=== PATIENT | female | born 1995 | race Caucasian/White ===

== ENCOUNTER 2019-06-26 22:40 | Inpatient (IN) | payer OTHER, MEDICAID, SELFPAY ==
--- NOTE | 2019-06-26 23:45 | P.HPOB_ITS ---
OB HPI Date/Time Date of admission: 06/26/19 Date Patient Seen: 06/26/19 Time Patient Seen: 23:45 History of Present Condition Chief complaint: EVAL OF LABOR : 2 Para: 1 Estimated Date of Delivery: 07/02/19 Estimated Gestational Age (weeks): 39w 1d Narrative: Nina Botoh is a 24 year old at approximately 39 weeks and 1 day gestation based on 16 week ultrasound in active labor. Painful contractions started shortly before arrival. Dating based on second-trimester ultrasound done 01/20/19 with estimated gestational age of 16 weeks and 5 days giving an CULLEN of 07/02/19. She had 1 visit at [facility] 01/10/2019. Patient admits to daily use of IV heroin, approximately 0.5 g per day. She also smokes a pack a day of cigarettes. Denies other drug use though her UDS done in December was also positive for amphetamines. Patient states she has a history of hepatitis C for which she has never received treatment. Her first child lives with her adoptive mother and [place]. Patient's adoptive mother plans to assume care of this infant as well. Available records indicate that she was given treatment for Trichomonas in December. History of Present care: limited care (One visit at [facility] in [place]) Dating criteria: based on 2nd trimester US only (Ultrasound 01/20/19, EGA 16 weeks 5 days, CULLEN 07/02/19) Ultrasounds: normal mid trimester US (Limited due to gestational age, anatomy appeared normal) Preadmission Labs Blood type: 0 (-) negative -: Antibody screen: negative, GBS status: unknown, HIV: negative and RPR/VDLR: negative -: Chlamydia screen: not detected and Gonorrhea screen: not detected -: Rubella: immune and Varicella: unknown (History of vaccine) HCT: 34.3 HCAB: negative Narrative: Urine drug string positive for opiates, amphetamines, methamphetamines 01/10/19 Prior (ies) History: 12/21/10 at 39 weeks 7 lb female, under the care of maternal adopted grandmother Evaluation Evaluation Baseline heart rate: 120 Variability: Moderate (11-25) monitor accelerations: Present monitor decelerations: Absent Contraction Frequency (minutes): 2 Category of Tracing: I Cervical dilation (cm): 8 Cervical effacement (%): 100 station: -2 (Bulging bag of water) COUNTS INCLUDE 234 BEDS AT THE [facility] Medical History Hepatitis C (Acute) IV drug abuse (Acute) Family History (Updated 06/27/19 @ 00:35 by Kelly Baptiste DO) Other Adopted Social History marital status: unmarried,single number of children: 1 household members: significant other lives independently: Yes caregiver/support person: Yes housing: other Smoking Status: Current every day smoker substance use type: heroin and amphetamines Meds Home Medications and Allergies Home Medications Medication Instructions Recorded Confirmed Type amoxicillin 500 mg PO TID 7 Days #0 tab 07/18/16 Rx Allergies Allergy/AdvReac Type Severity Reaction Status Date / Time No Known Allergies Allergy Uncoded 08/26/17 12:09 Review of Systems Constitutional Constitutional: Denies fatigue and Denies fever(s) Cardiovascular Cardiovascular: Denies leg swelling and Denies shortness of breath Respiratory Respiratory: Denies cough and Denies dyspnea Gastrointestinal Gastrointestinal: Denies abdominal pain and Denies change in bowel habits Genitourinary Genitourinary: Denies vaginal discharge, Denies vaginal odor and Denies pelvic pain Endocrine Endocrine: Denies fatigue Exam Vital Signs (past 8 hours): Temperature 35.7? blood pressure 115/71 heart rate 75 Const General: acute distress (Diaphoretic, very anxious and painful) and disheveled HENMT Head: normal to inspection Ears: hearing grossly normal bilaterally Nose: external nose normal Face and sinus: normal facial exam Mouth: oral mucosae normal Eyes General: appearance normal, both eyes and all related structures Neck Neck: normal visual inspection Resp Effort & Inspection: normal respiratory effort Auscultation: clear to auscultation bilaterally Cardio Rate: regular rate Rhythm: regular rhythm Heart Sounds: no murmurs GI Other: Gravid External Female Exam: external appearance normal Uterus Location (Fundal Height): 36 Presentation: vertex Estimated Weight (lbs): 6 Back/Spine/Pelvis Back: normal to inspection Skin General: no rashes or lesions noted Extrem General: normal to inspection and no pedal edema Assessment and Plan Assessment and Plan Assessment and Plan narrative: 24-year-old at 39 weeks and 1 week date gestation in active labor. Limited care with 1 visit in December of 2018. CULLEN based on 16 week ultrasound. Unknown GBS status. Patient is Rh negative and did not receive RhoGAM this . She states she has a history of hepatitis C for which she has never received treatment. Hepatitis C was negative on her labs and in December. Patient admits to daily use of approximately 0.5 g of heroin as well as a pack of cigarettes/day. Her first child is under the care of the patient's mother in [place]. Patient's adoptive mother plans to assume care of this infant as well. UDS positive for opiates on admission. Plan labs were drawn on admission before records were available, results are still pending including hepatitis C antibody GBS collected, will give 1 dose of penicillin while awaiting results Expectant management, patient appears to be progressing quickly, anticipate Patient is aware that will need to be transferred to a facility within NICU due to intrauterine drug exposure
[2019-06-26] MEDS: LACTATED RINGERS 1,000 ML 100 ML IV (23:49)
[2019-06-26] MEDS: PENICILLIN G POTASSIUM 5,000,000 UNIT in DEXTROSE 5% IN WATER 250 ML IV (23:50)
[2019-06-27 00:03] LABS: Ur Creatinine Normal (Normal); Ur Specific Gravity Normal (Normal); Urine pH Normal (Normal)
[2019-06-27 00:04] LABS: UR Morphine/Opiate cutoff 300 Positive (Negative); Urine Amphetamines Negative (Negative); Urine Barbiturates Negative (Negative); Urine Benzodiazepines Negative (Negative); Urine Cocaine Negative (Negative); Urine MDMA Negative (Negative); Urine Methadone Negative (Negative); Urine Methamphetamines Negative (Negative); Urine Oxycodone Negative (Negative); Urine Phencyclidine Negative (Negative); Urine Tetrahydrocannabinol Negative (Negative); Urine Tricyclic Antidepressant Negative (Negative)
[2019-06-27 00:09] LABS: Add Manual Diff / Slide Review NO; Basophils Absolute Auto 100 /uL (0-100); Basophils Percent Auto 0.7 % (0-2); Eosinophils Absolute Auto 100 /uL (0-450); Eosinophils Percent Auto 0.4 % (2-4); Hemoglobin 12.2 g/dL (12.0-16.0); Lymphocytes Absolute Auto 2400 /uL (1100-4500); Lymphocytes Percent Auto 15.7 % (25-40); Mean Corpuscular HGB Conc 33.8 % (30-36); Mean Corpuscular Hemoglobin 29.1 PG (26-34); Mean Corpuscular Volume 86.1 fL (80-100); Monocytes Absolute Auto 800 /uL (0-900); Monocytes Percent Auto 5.4 % (3-14); Neutrophils Absolute Auto 11700 /uL (1500-7000); Neutrophils Percent Auto 77.8 % (50-75); Platelet Count 403 X10^3/uL (150-400); Red Blood Cell Count 4.18 X10^6/uL (4.0-5.2); Red Cell Distribution Width 14.8 % (11.6-14.8)
[2019-06-27 00:49] LABS: Strep Grp B PCR NEG for Grp B Strep
[2019-06-27 02:02] LABS: Hepatitis B Surface Antigen NEGATIVE s/c (NEGATIVE); Rubella Antibody IgG 49.4 IU/mL (>15)
[2019-06-27] MEDS: fentaNYL 100 MCG/2 ML INJ (02:06)
[2019-06-27] MEDS: OXYTOCIN 10 UNIT/ML VIAL 20 UNIT IV (02:10)
[2019-06-27] MEDS: LIDOCAINE 1% 20 ML (02:15)
--- NOTE | 2019-06-27 02:35 | PM.OBPRVD ---
 Events: No Care (One visit) Labor & Delivery Delivery date: 06/27/19 Delivery augmentation: rupture of membranes Delivery monitor: external FHT Route of delivery: L&D Laceration Description: Vaginal - 1st Degree and Labial (Bilateral labial) Delivery repair: vicryl Estimated blood loss (mL): 350 Anesthesia type: Other (Nitrous oxide) Narrative: Patient is a 24-year-old at 39 weeks and 2 days who gave on 06/27/19 at 1:55 a.m.. CULLEN: 07/02/19 Hospital problems: 39 weeks gestation Heroin use Hepatitis-C Limited care STAGE I: Labor Patient presented in active labor requesting an epidural. Unfortunately anesthesia was not available due to an extensive case in the operating room. Patient received nitrous oxide with improvement in pain control. AROM at 1:06 a.m. with clear fluid. Patient was complete at the time of rupture membranes. heart tones were category 1 throughout stage I. STAGE II: Delivery Spontaneous vaginal delivery occurred at 1:50 a.m.. was vertex and RHONDA. was immediately placed on mother's abdomen. Cord was clamped and cut after 1 minute delay. Apgars were 9 and 9 at 1 and 5 minutes. No resuscitation of the required. weight was 2700 g. heart tones were category 2 throughout stage I due to decelerations with pushing, some prolonged but with good recovery back to baseline. STAGE III: Placenta/Cord Placenta delivered at 1:50 a.m. after active management and appeared intact with a three-vessel cord. Pitocin bolus given after delivery of placenta. Patient sustained bilateral first degree labial lacerations. Due to persistent bleeding of the right labial laceration, this was repaired in the usual fashion with 4 0 Vicryl with good hemostasis. There was a very superficial first-degree vaginal laceration which was not repaired. EBL: 350 mL. Needle and sponge counts were correct. The vagina was inspected and no items were left in situ. Baby 1: Infant gender: Female Presentation: vertex Placenta delivery description: Spontaneous cord vessel description: 3 Vessels score (1 min): 9 score (5 min): 9
[2019-06-27 02:51] VITALS: BP 100/70
[2019-06-27 02:58] LABS: HIV 1 & 2 Ab/Ag 4th Gen Combo NEGATIVE (NEGATIVE); Hep C Virus Ab w/Reflex Quant REACTIVE s/c (NEGATIVE)
[2019-06-27] MEDS: ONDANSETRON 4 MG/2 ML INJ IV (03:34)
--- NOTE | 2019-06-27 07:54 | PM.OBDS.1 ---
Discharge Providers Provider Date of admission: 06/26/19 22:40 Discharge Date: 06/27/19 Consults: 06/27/19 07:53 Consult to Discharge Planning Routine Comment: Resources for opiate abuse treatment 06/28/19 02:39 Consult to Emergency Medicine Physician Routine Comment: Discharge provider: Kelly Baptiste DO Summary Hospital Course Date Patient Seen: 06/27/19 Time Patient Seen: 07:35 Procedures: Spontaneous vaginal delivery Hospital Course: Patient is a 24-year-old G2 now P2 after uncomplicated spontaneous vaginal delivery at 39 weeks and 2 days to a vigorous female infant. complicated by hepatitis-C, IV drug abuse and very limited care (1 visit). Infant is being transferred to the NICU at [facility] in [place] due to anticipated opiate withdrawal. Patient was using 0.5 g of heroin daily throughout the in addition to a pack a day of cigarettes. course has been uncomplicated. Vital signs stable causing bleeding as expected. Patient denies significant pain. She has ambulated and voided without difficulty. Discussed options for contraception. Patient will be given a Depo-Provera injection prior to discharge today. She would like the Nexplanon which she had in the past. Unfortunately she kept it in for 8 years then had removed at the beginning of this . Advised patient that is important to follow-up for removal at the prescribed time so that a new implant can be placed. She understands. Discussed heroin use with patient. She is familiar with [facility] as well as [facility]. She is interested in assistance getting off of heroin. Appreciate social Work meeting with her and reviewing all available community options. Patient advised to call for fevers, severe pain or bleeding through more than a pad an hour. She is interested in following up in clinic for Nexplanon insertion. Peripartum Data Delivery Method: Natural Vaginal Laceration description: Vaginal - 1st Degree (Bilateral first degree) complications: none 1: Gender: Female Disposition of : NICU (Transfer to NICU at [facility] for expected opiate withdrawal) Discharge Diagnosis (1) Intravenous drug use during : Status: Acute (2) Spontaneous vaginal delivery: Status: Acute (3) 39 weeks gestation of : Status: Acute (4) Limited care: Status: Acute Time Spent with Patient Time attestation: Total time spent providing and/or coordinating discharge services: Time spent: Less than 30 minutes Objective Labs Result Diagrams: 06/26/19 23:37 Labs: Laboratory Results - last 24 hr 06/26/19 06/26/19 06/26/19 23:00 23:30 23:37 WBC 15.0 H RBC 4.18 Hgb 12.2 Hct 36.0 MCV 86.1 MCH 29.1 MCHC 33.8 RDW 14.8 Plt Count 403 H Neut % (Auto) 77.8 H Lymph % (Auto) 15.7 L Redwood % (Auto) 5.4 Eos % (Auto) 0.4 L Baso % (Auto) 0.7 Neut # (Auto) 75926 H Lymph # (Auto) 2400 Redwood # (Auto) 800 Eos # (Auto) 100 Baso # (Auto) 100 U Opiates 300ng/mL cut Positive H Ur Oxycodone Screen Negative Urine Methadone Screen Negative Ur Barbiturates Screen Negative U Tricyclic Antidepress Negative Ur Phencyclidine Scrn Negative Ur Amphetamines Screen Negative U Methamphetamines Scrn Negative Ur MDMA Scrn (Ecstasy) Negative U Benzodiazepines Scrn Negative Urine Cocaine Screen Negative U Marijuana (THC) Screen Negative Hep Bs Antigen Hepatitis C Antibody HIV 1&2 Ab/P24 Ag 4thGn Rubella Antibody Group B Strep (PCR) Blood Type O Negative Antibody Screen Negative 06/26/19 06/26/19 06/26/19 23:37 23:37 23:37 WBC RBC Hgb Hct MCV MCH MCHC RDW Plt Count Neut % (Auto) Lymph % (Auto) Redwood % (Auto) Eos % (Auto) Baso % (Auto) Neut # (Auto) Lymph # (Auto) Redwood # (Auto) Eos # (Auto) Baso # (Auto) U Opiates 300ng/mL cut Ur Oxycodone Screen Urine Methadone Screen Ur Barbiturates Screen U Tricyclic Antidepress Ur Phencyclidine Scrn Ur Amphetamines Screen U Methamphetamines Scrn Ur MDMA Scrn (Ecstasy) U Benzodiazepines Scrn Urine Cocaine Screen U Marijuana (THC) Screen Hep Bs Antigen Negative Hepatitis C Antibody Reactive H HIV 1&2 Ab/P24 Ag 4thGn Negative Rubella Antibody 49.4 Group B Strep (PCR) Blood Type Antibody Screen 06/26/19 23:45 WBC RBC Hgb Hct MCV MCH MCHC RDW Plt Count Neut % (Auto) Lymph % (Auto) Redwood % (Auto) Eos % (Auto) Baso % (Auto) Neut # (Auto) Lymph # (Auto) Redwood # (Auto) Eos # (Auto) Baso # (Auto) U Opiates 300ng/mL cut Ur Oxycodone Screen Urine Methadone Screen Ur Barbiturates Screen U Tricyclic Antidepress Ur Phencyclidine Scrn Ur Amphetamines Screen U Methamphetamines Scrn Ur MDMA Scrn (Ecstasy) U Benzodiazepines Scrn Urine Cocaine Screen U Marijuana (THC) Screen Hep Bs Antigen Hepatitis C Antibody HIV 1&2 Ab/P24 Ag 4thGn Rubella Antibody Group B Strep (PCR) Neg for grp b strep Blood Type Antibody Screen Exam Vital Signs (past 8 hours): - 06/27/19 02:51 Blood Pressure 100/70 Narrative Exam Narrative: Temperature 37.5? blood pressure 109/57 heart rate 81 General: Awake and alert, no acute distress. HEENT: NCAT, EOMI, moist oral mucosa CV: Regular rate and rhythm, no murmurs, rubs or gallops Lungs: CTAB, no wheezes, rales, or rhonchi Abdomen: Soft, nontender; bowel tones active; uterus firm 2 cm below umbilicus Extremities: Warm, no edema, 2+ pedal pulses bilaterally Discharge Plan Discharge Plan Patient Disposition: Home Discharge comment: Discharge today so that patient may follow to the NICU in [place]. Discharge orders & Medications Prescriptions: Discontinued amoxicillin 500 MG tablet 500 mg PO TID 7 Days Qty: 0 RF: 0 Follow up/Referrals: Kelly Baptiste DO [Physician] - 6 Weeks (Follow up with Dr. Baptiste on August 01 at 11:00am. Please call to reschedule if this time does not work.) Visit Report/Discharge Packet Stand Alone Forms: Discharge: Care Visit Report Forms: Patient Portal/API, Stroke Signs & Symptoms
--- NOTE | 2019-06-27 08:43 | CM.SWNOTE ---
[employer] Note: Received verbal referral from Center staff that requesting [employer] visit to provide patient with community resources for heroin abuse. Per nursing staff (girl) APGARS 9/9 will be transferred to [facility] for potential heroin withdrawal. Met with patient and boyfriend asleep in recliner in room. Patient freely admits to daily use of heroin. Last dose was yesterday prior to coming to the hospital. Patient reports that she has had another daughter that has been adopted by the same family that will be adopting this . The family live in [place] and are expected to be here today. Patient and boyfriend plan to follow ambulance to [facility]. [employer] asked patient if she had any desire to quit? Patient reports that she does have community resources and plans to go to [facility] in [place] once all arrangements made. Patient provided with community resources for [facility], and list of providers that treat both mental health and substance abuse. P: Home today. LORE Zavala
[2019-06-27] MEDS: MEDROXYPROGESTERONE 150 MG/ML IM (09:33)
[2019-06-29 20:35] LABS: RPR Screen Nonreactive (Nonreactive)
== END 2019-06-27 09:50 | disposition home or self-care (01) | DRG 560 ==
PROVIDERS: Admitting Provider Family Medicine; Referring Provider Family Medicine; Visit Provider Family Medicine
DX: O99.324 Drug use complicating childbirth (principal); F11.10 Opioid abuse, uncomplicated; O99.334 Smoking (tobacco) complicating childbirth; Z3A.39 39 weeks gestation of pregnancy; Z37.0 Single live birth; O70.0 First degree perineal laceration during delivery; O98.42 Viral hepatitis complicating childbirth; B19.20 Unspecified viral hepatitis C without hepatic coma
CPT/HCPCS: 36415; 59050; 59409; 80055; 80305; 85461; 86803; 86850; 86900; 86901; 87081; 87389; 87522; 87653; 99222; G0379; J1050; J2405; J2540; J2590; J3010

== ENCOUNTER 2020-10-17 17:43 | Emergency (ER) | payer OTHER, MEDICAID, SELFPAY ==
[2020-10-17 18:00] VITALS: BP 101/58; PULSE 112; RESP 15; TEMP 37.4; O2SAT 100; BMI 21.4
== END 2020-10-17 20:36 | disposition left against medical advice (07) ==
PROVIDERS: Emergency Provider Emergency Medicine
CPT/HCPCS: 99281

== ENCOUNTER 2025-03-13 05:51 | Inpatient (IN) | payer MEDICAID, SELFPAY ==
--- NOTE | 2025-03-13 06:08 | DI.US.S_ITS ---
PROCEDURE: US OB LIMITED INDICATIONS: Growth US, no care OUTSIDE/PRIOR DATING DATA: Last menstrual period (LMP): Unknown. LMP-based estimated date of delivery (CULLEN): Unknown. First dating scan (date and location): 03/13/2025. Estimated date of delivery (CULLEN) from first dating scan: 36 weeks 2 days. TECHNIQUE: Real-time scanning was performed of the fetus, with image documentation and biometric measurements. Biophysical profile was also obtained. Endovaginal scanning: Not acquired. COMPARISON: None. FINDINGS: General: A single living intrauterine gestation is present. Presentation: Vertex position. Placenta: Placental position is anterior , without previa. Normal >2 cm. Low lying is <2 cm to the edge. Previa covers the internal os. Amniotic fluid index: 5.0 cm, normal range is 5-24 cm. Single deepest vertical pocket is 2.3 cm. heart rate: Plan 20 a beats per minute. Maternal cervical canal: Not well seen or well evaluated. biometrics: Biparietal diameter: 8.7 cm, 35 weeks 2 days Head circumference: 31.8 cm, 35 weeks 5 days Abdominal circumference: 32.9 cm, 36 weeks 6 days Femur length: 7.28 cm, 37 weeks 2 days Clinically estimated gestational age: Unknown. Composite gestational age from present scan: 36 weeks 2 days Estimated weight and percentile: Unknown. Biophysical profile: Not obtained. Umbilical artery Doppler: Not obtained. No gross anatomic abnormalities in the limited survey. IMPRESSION: Single intrauterine with an estimated gestational age of 36 weeks 2 days. EFW of 5 cm. We strive to produce accurate, complete, and clear reports of imaging services. To assist us in improving patient care, this report was composed using standard report templates and voice recognition software. Therefore, it may contain abnormal punctuation, insertions and/or omissions. Occasional wrong-word or sound-alike substitutions may occur. Though we review the report and make efforts to correct it, we do recommend that the report be read carefully in proper context to recognize any text inaccuracies. He Dictated by: Allyssa Mora M.D. on 03/13/2025 at 8:39 Approved by: Allyssa Mora M.D. on 03/13/2025 at 8:43
--- NOTE | 2025-03-13 07:13 | PM.OBHP.IH.1 ---
OB HPI Date/Time Date of admission: 03/13/25 Date Patient Seen: 03/13/25 Time Patient Seen: 06:45 History of Present Condition Chief complaint: Water Broke, [place] Narrative: 30-year-old at unknown gestational age presenting for rupture of membranes. Thinks may have occurred around 5:00 a.m. this morning. Initially was clear, then became greenish color. Endorses normal movement. Denies vaginal bleeding. course notable for no care, active IVDU (fentanyl and methamphetamine), active hepatitis C (never treated). care: none Dating criteria OB: based on 3rd trimester US only Ultrasounds: other (3rd trimester US today) Preadmission Labs Last OB Lab Results: Blood Type O Negative 06/26/19, 23:30 Antibody Screen Negative 06/26/19, 23:30 Hct, (36-46) 36.0 % 06/26/19, 23:37 Hgb, (12.0-16.0) 12.2 g/dL 06/26/19, 23:37 Hep Bs Antigen, (NEGATIVE) Negative s/c 06/26/19, 23:37 Hepatitis C Antibody, (NEGATIVE) Reactive s/c H 06/26/19, 23:37 Rubella Antibody, (>15) 49.4 IU/mL 06/26/19, 23:37 Group B Strep (PCR) Neg for grp b strep 06/26/19, 23:45 Prior (ies) Hx # Term Pregnancies: 2 Hx # Pregnancies: 1 Number of Living Children: 2 Evaluation Evaluation Baseline heart rate: 120 Variability: Moderate (6-25) monitor accelerations: Present Monitor Decelerations: Absent Contraction Frequency (minutes): 2 Uterine Contraction Intensity: Moderate Category of Tracing: Reactive Status: Category l Dilation (cm): 1 Effacement (%): 60 station: -3 Consistency: medium Comments: Grossly ruptured with meconium stained fluid, exam per L&D RN [facility] Medical History (Updated 11/01/20 @ 00:00 by ) IV drug abuse Hepatitis C Family History (Updated 06/27/19 @ 00:35 by Kelly Baptiste DO) Other Adopted Social History marital status: unmarried,single number of children: 1 household members: significant other lives independently: Yes caregiver/support person: Yes housing: other substance use type: heroin and amphetamines Meds Home Medications and Allergies Home Medications ?Medication ?Instructions ?Recorded ?Confirmed ?Type No Known Home Medications 03/13/25 03/13/25 History Allergies Allergy/AdvReac Type Severity Reaction Status Date / Time No Known Drug Allergies Allergy Verified 10/17/20 18:04 OB Exam Narrative Exam Narrative: General: Well-nourished, no distress HEENT: NC/AT, EOMI, moist mucous membranes CV: RRR, normal S1 S2, no m/g/r Resp: CTAB Abd: Gravid, soft, NTND, +BS Ext: Full ROM, no edema Skin: No rash or lesions Neuro: A&O x3, normal tone, no focal deficits Objective Imaging US OB: My impression: Placenta anterior, no previa CLEM 5.0 SDP 2.3 Heart rate 128 beats per minute EFW 2988 g DIPESH 63+2 weeks Assessment and Plan Assessment and Plan Assessment and Plan narrative: 30-year-old at GA 36+2 weeks by US this morning presenting for labor. Grossly ruptured with meconium on exam, linden q 2-3 minutes. notable for active IVDU (fentanyl and methamphetamine), active hepatitis C (never treated), no care. Patient is Rh negative and did receive RhoGAM this , unclear if she received after most recent delivery. Patient admits to IV drug use as recently as 4 hours prior to presentation. On chart review patient delivered here in 2019 under similar circumstances. Patient's adoptive mother apparently assumed care of her first 2 children at indicates this is the plan for her current child as well. Plan: - labs drawn, resuls pending including hep C antibody (likely to be positive given no previous treatment) -GBS unknown, ppx indicated -pain control prn if desired by patient -VTE risk low, SCDs with epidural -expectant management, anticipate vaginal delivery Time-Based Coding :: 45 minutes spent with patient and on the chart (including review of chart, obtaining history, exam, reviewing outside data, placing orders, documenting exam and treatment plan, and counseling patient) on 03/13/2025.
[2025-03-13 07:30] VITALS: BP 125/73
[2025-03-13 07:38] LABS: Hematocrit 28.1 % (36-46); Hemoglobin 8.7 g/dL (12.0-16.0); Lymphocytes Absolute Auto 2400 /uL (1100-4500); Mean Corpuscular HGB Conc 31.2 % (30-36); Mean Corpuscular Hemoglobin 23.5 PG (26-34); Mean Corpuscular Volume 75.4 fL (80-100); Platelet Count 362 X10^3/uL (150-400)
[2025-03-13] MEDS: AMPICILLIN 2,000 MG in SODIUM CHLORIDE 0.9% 100 ML 200 MG IV (07:40)
[2025-03-13] MEDS: LACTATED RINGERS 1,000 ML 999 ML IV (07:40)
[2025-03-13 07:49] LABS: Add Manual Diff / Slide Review SLIDE REVIEW
[2025-03-13 07:50] LABS: Anisocytosis 1+; Microcytosis 1+
[2025-03-13 08:16] LABS: Hepatitis B Surface Antigen NEGATIVE s/c (NEGATIVE)
--- NOTE | 2025-03-13 08:23 | P.PCN_ITS ---
[facility] Pre-procedure Procedure: Continuous Lumbar Epidural for L&D Attending OB provider: Maxx Steele PMH/RYAN narrative: unknown gestational age - 36wk by US today - with no care, SROM early this am. Previous at in 2019, active HCV and positive opioids on intake tox screen at that time. Currently: HCV (untreated), report of opioid and methamphetamine use, micorcytic-hypochromic anemia. Normal platelets, normal BP's. No reported allergies, meds, or other obstetric or medical complications. ASA Class: III (HCV, drug use, no care) Labs: Hct 28.1 % (36-46) L 03/13/25 07:10 Plt Count 362 X10^3/uL (150-400) 03/13/25 07:10 Medications: Current Medications Generic Name Dose Route Start Last Admin Trade Name Freq PRN Reason Stop Dose Admin Calcium Carbonate 1,000 mg 03/13/25 06:05 Calcium Carbonate 500 Mg Tab PO Q2HR PRN Dyspepsia Carboprost Tromethamine 250 mcg 03/13/25 06:05 Carboprost 250 Mcg/Ml Ampul IM Q90M PRN Bleeding Lactated Ringer's 1,000 mls @ 100 mls/hr 03/13/25 06:15 Lactated Ringers IV 03/13/25 16:14 CONT SUMMER Oxytocin/Lactated Ringer's 30 unit in 500 mls @ 200 mls/hr 03/13/25 06:05 Oxytocin Premix IV CONT PRN Bleeding Protocol Tranexamic Acid 1,000 mg/ 100 mls @ 600 mls/hr 03/13/25 06:05 Sodium Chloride IV NOW PRN Bleeding Ampicillin Sodium 1,000 mg/ 100 mls @ 200 mls/hr 03/13/25 10:30 Sodium Chloride IV Q4H SUMMER Lactated Ringer's 1,000 mls @ 999 mls/hr 03/13/25 07:53 03/13/25 07:40 Lactated Ringers IV 03/13/25 08:53 999 mls/hr BOLUS ONE Administration FENT 2MCG/ML BUPIV 0.125% EPI 200 mcg in 100 mls @ 8 mls/hr 03/13/25 08:00 Fentanyl/Bupiv/Ns 2mcg/Ml - 0.125% EPIDURAL CONT SUMMER Protocol Lidocaine HCl 20 ml 03/13/25 06:05 Lidocaine 1% 20 Ml INJ INTRA-OP PRN Post Delivery Methylergonovine Maleate 0.2 mg 03/13/25 06:05 Methylergonovine 0.2 Mg Tablet PO Q6HR PRN Heavy Bleeding Methylergonovine Maleate 0.2 mg 03/13/25 06:05 Methylergonovine 0.2 Mg/Ml Vial IM NOW PRN Bleeding Mineral Oil 30 ml 03/13/25 06:05 Mineral Oil 30 Ml Udc TOP PRN PRN Version Misoprostol 800 mcg 03/13/25 06:05 Misoprostol 200 Mcg Tablet MS NOW PRN Bleeding Misoprostol 400 mcg 03/13/25 06:05 Misoprostol 200 Mcg Tablet SL NOW PRN Bleeding Naloxone HCl 0.2 mg 03/13/25 06:05 Naloxone 0.4 Mg/Ml Vial IV Q2MIN PRN Opiate Reversal Ondansetron HCl 4 mg 03/13/25 06:05 Ondansetron 4 Mg/2 Ml Inj IV Q4HR PRN Nausea And Vomiting Oxytocin 10 unit 03/13/25 06:05 Oxytocin 10 Unit/Ml Vial IM NOW PRN Bleeding Allergies: Allergies Allergy/AdvReac Type Severity Reaction Status Date / Time No Known Drug Allergies Allergy Verified 10/17/20 18:04 Procedure Insertion date: 03/13/25 Insertion time: 08:07 Prep/Local: betadine x3 and 1% lidocaine Interspace: L23 Patient position: sitting Needle: 18 gauge [place] Planettead (CSE: 27g Pencan through Hustead. Clear CSF. 1mL 0.25% MPF bupiv) Loss of resistance with: saline SYMONE at (cm): 5 Catheter placed at SKIN (cm): 11 Catheter in SPACE (cm): 6 Insertion: No CSF, No Blood, No Paresthesia with insertion, No Paresthesia with injection and No Test dose reaction Initial Medications TEST DOSE time: 08:08 TEST DOSE: 1.5% lidocaine with epinephrine 1:200k (mL): 3 BOLUS DOSE time: 08:20 BOLUS DOSE (mL): 4 BOLUS DOSE med: other (infusate) Infusion INFUSION: 0.125% bupivacaine and with fentanyl 2 mcg/mL Initial rate (mL/hr): 8 Post-procedure Anesthesia date START: 03/13/25 Anesthesia time START: 07:56 Anesthesia date END: 03/13/25 Anesthesia time END: 11:57 Post-procedure Anesthesia Assessment: Yes CV function: HR/BP stable, Yes Resp function: RR/sat/airway adequate, Yes Post-op hydration adequate, Yes Pain control adequate, Yes Nausea & vomiting absent, Yes Temperature > 36 C, Yes Mental status appropriate and No Anesthesia complications
[2025-03-13 09:54] LABS: Ur Specific Gravity Normal (Normal)
[2025-03-13 09:55] LABS: UR Morphine/Opiate cutoff 300 Negative (Negative); Urine Methamphetamines Positive (Negative); Urine Tetrahydrocannabinol Negative (Negative)
[2025-03-13 09:56] LABS: Urine MDMA Positive (Negative); Urine Tricyclic Antidepressant Negative (Negative)
--- NOTE | 2025-03-13 10:14 | PM.OBPNLAB ---
Date/Time Date Patient Seen: 03/13/25 Time Patient Seen: 10:14 Pain Control Pain control: epidural Comments: more comfortable with epidural Pelvic Exam Dilation (cm): 5 Effacement (%): 60 station: -3 Amniotic membrane status: Leaking Comments: mec stained Contractions Contractions on admission: irregular Monitor mode: External Contraction frequency (min): 2 Contraction pattern: Regular Contraction intensity: Moderate Status status: Category l Heart Rate Baseline: 120 Monitor Accelerations: Present Monitor Decelerations: Absent Monitor Variability: Moderate Assessment and Plan Assessment: active labor Plan: continuous present management Comments: 30-year-old at GA 36+2 weeks by US on arrival presenting for DOTTIE and ROM. Grossly ruptured with meconium on exam, linden q 1-2 minutes. notable for active IVDU (fentanyl and methamphetamine), active hepatitis C (never treated), no care. Patient is Rh negative and did receive RhoGAM this , unclear if she received after most recent delivery. Patient admits to IV drug use as recently as 4 hours prior to presentation. On chart review patient delivered here in 2019 under similar circumstances. Patient's adoptive mother apparently assumed care of her first 2 children and indicates this is the plan for her current child as well. DOTTIE ROM: - labs drawn, results pending including hep C antibody (likely to be positive given no previous treatment) -GBS unknown, ppx indicated, on ampicillin s/p dose X1, awaiting dose 2 at 11:40 -epidural in place -VTE risk low, SCDs with epidural - Continuous monitoring - discussed postplacental IUD, pt declines Hep C +: - Hep C viral load pending - consult - bath for baby prior to any injections IVDU: planning on going to detox, not wishing to discuss today - consult - awareness for pain control Rh negative - plan for RHogam following delivery
[2025-03-13] MEDS: AMPICILLIN 1,000 MG in SODIUM CHLORIDE 0.9% 100 ML 200 MG IV (11:10)
[2025-03-13] MEDS: OXYTOCIN PREMIX 30 UNIT/500 ML PLAST..BAG 999 UNIT IV (12:09)
--- NOTE | 2025-03-13 13:01 | PM.OBPRVD ---
Events: No Care and Other (IVDU in ) Labor & Delivery Delivery date: 03/13/25 Delivery Time: 11:47 Cervical ripening method: none Induction method: none Delivery monitor: external FHT Route of delivery: L&D Laceration Description: None Estimated blood loss (mL): 100 Anesthesia Type: Epidural Narrative: PROCEDURE: 30 yo at 36w2d by 36 week US on arrival who presented wtih SROM and DOTTIE and was admitted to Labor and Delivery. dating was unknown and pt had no care so US was performed for dating. also complicated by hx of Hep C positive status (Hep C viral load pending), and IVDU with last use earlier this am before arrival at around 3am. UDS positive for MDMA + methamphentamines. Opioids screen negative on this UDS but pt noting Fentanyl use and methamphetamine use. ROM occured prior to arrival at around 5am with clear fluid but at time of arrival to the hospital had turned green. She was managed expectantly. She was given 2 doses of ampicillin for GBS unknown status. Pain was controlled with epidural. The patient progressed through the 2nd stage and delivered a viable female with APGARs 7/9 at [facility] via direct OA with restitution to ELIZABET at 11:47. Terminal mec was present. The cord was cut and clamped after a 60 second delay. The placenta delivered with gentle cord traction, and appeared complete. The perineum and vagina were inspected with no lacerations. did require delee suction and blow by from min 2 of life to 13, at which point Spo2 was in the 80s so CPAP was started for 5 min, then with improved oxygenation was returned to blow by. She is now on RA and breathing comfortably without retractions. Needle and sponge counts were correct.? The vagina was inspected and no items were left in situ. PREPROCEDURE DIAGNOSIS: Intrauterine at 36w2d by US on arrival No care IVDU, amphetamines and MDMA GBS unknown RH negative planned adoption POSTPROCEDURE DIAGNOSIS: Intrauterine at 36w2d, delivered Same as preprocedure [place] Baby 1: Infant gender: Female Presentation: vertex Position: Right Occiput Anterior Placenta delivery description: Spontaneous Cord Vessel Description: 3 Vessels score (1 min): 7 score (5 min): 9 weight: 7 lb 15.339 oz Plan for aftercare: Routine care
[2025-03-13] MEDS: KETOROLAC 30 MG/ML VIAL IV (13:23)
--- NOTE | 2025-03-13 13:41 | CM.SWNOTE ---
MARKING MACHINE TENDER Assessment Note: Pt is a 30yo female, unhoused individual of [place], just gave to a babygirl (Chacko) at 36w. Pt's Primary Care Provider is unknown and insurance is Medicaid. Reviewed chart and discussed with multidisciplinary team pt's medical status and initial discharge needs. Per Provider, pt reports meth and fentanyl use at 0300 on 03/13/25 with no care for throughout . Pt's Utox was positive for Amphetamines, methamphetamines, MDMA. DCP met w/patient at bedside; introduced self and role. Patient was found in bed, alert and oriented, cooperative with assessment. Pt confirmed living situation (currently staying in car with partner, Chas Harmon, [facility] Patient explains that she has two older children who she has relinquished her parental rights over to her own adoptive mother, Aniya Booth ph# [phone]. Pt states she has already coordinated with her adoptive mother to do the same for this baby. Pt gave consent for this MARKING MACHINE TENDER to call her adoptive mother. Pt states she is not currently seeing a MH or JP provider at this time, last saw someone at [facility] for JP/Methadone treatment. Pt declined any needs at this time, MARKING MACHINE TENDER provided printed copy of Community Resources for and Families in [facility], highlighting Community Action and Crisis Lines. MARKING MACHINE TENDER called pt adoptive mother, Aniya Booth, who states she is about to board an airplane to [place], she has plans of obtaining a senior tax analyst to assist in completing adoption paperwork and taking the baby back to [place] when medically cleared/legal paperwork obtained. Adoptive mother does not have a car seat at this time but plans to purchase one before she gets back to [place] where she has one already installed in her vehicle. MARKING MACHINE TENDER provided hospital address and contact number per her request. Adoptive mother will arrive at bedside to assist with safe discharge of baby into her care. Per [facility] [phone], confidential information about the patient has been given to Child Protective Services Intake Line. Intake #[id number]. Industrial Chemist: Mallika. Noted with CPS that baby's Utox is still pending at time of call. Plan: Pending CPS investigation; anticipating to be discharged with adoptive mother when medically cleared and adoption paperwork obtained. CM team will follow closely for coordination of discharge plans. Cherelle Duncan, CAN FILLING AND CLOSING MACHINE TENDER
[2025-03-13] MEDS: DERMOPLAST SPRAY 20% 60 ML 1 SPRAY TOP (14:30)
[2025-03-13] MEDS: RHO(D) IMMUNE GLOBULIN 1,500 UNIT SYRINGE 1500 UNIT IM (15:20)
== END 2025-03-13 15:20 | disposition home or self-care (01) | DRG 806 ==
PROVIDERS: Admitting Provider Family Medicine; Referring Provider Family Medicine; Visit Provider Family Medicine
DX: O42.013 Preterm premature rupture of membranes, onset of labor within 24 hours of rupture, third trimester (principal); O98.42 Viral hepatitis complicating childbirth; Z37.0 Single live birth; O99.324 Drug use complicating childbirth; B19.20 Unspecified viral hepatitis C without hepatic coma; Z3A.36 36 weeks gestation of pregnancy; F15.10 Other stimulant abuse, uncomplicated; F11.10 Opioid abuse, uncomplicated; Z67.41 Type O blood, Rh negative
CPT/HCPCS: 36415; 59050; 76815; 80055; 80305; 86850; 86900; 86901; 87522; G0378; G0379; J0290; J1885; J2590; J2790; J7050; J7120